=== PATIENT | female | born 1975 | race Two or more races ===

== ENCOUNTER 2016-11-22 19:30 | Emergency (ER) | payer OTHER ==
--- NOTE | 2016-11-22 19:34 | PDOC ---
History of Present Illness - General History Source: Patient Exam Limitations: No Limitations - History of Present Illness Initial Comments: 11/22/16 19:56 The patient is a 41 year old female, who presents to the emergency department with left sided abdominal pain and urgency onset today and pain on urination since yesterday. She describes her abdominal pain as ranging from mild to moderate, with radiation to her right flank. She denies any modifying factors. She notes that the pain on urination began yesterday and describes it as a pressure like sensation. She states that her history of kidney stones was on the right kidney. The patient denies chest pain, shortness of breath, headache and dizziness. Denies fever, chills, nausea, vomit, diarrhea and constipation. Denies frequency , and hematuria. PAST MEDICAL HISTORY: Kidney stones PAST SURGICAL HISTORY: Gastric sleeve (09/2016) FAMILY HISTORY: no pertinent history SOCIAL HISTORY: Pt lives with family and is employed. MEDICATIONS: reviewed ALLERGIES: As per nursing notes <Gabriel Puga - Last Filed: 11/22/16 19:55> - General History Source: Patient Exam Limitations: No Limitations - History of Present Illness Initial Comments: 11/22/16 21:38 A portion of this note was documented by scribe services under my direction. I have reviewed the details of the note, within reason, and agree with the documentation. The case summary and management plan written by me. 11/22/16 22:33 CT scan shows a 4 mm stone in the distal left ureter at the level of the acetabulum the ureter is poorly visualized but no hydronephrosis. There is also multiple tiny 1-2 mm nonobstructing bilateral intrarenal stones. Assessment and plan: This is a 41-year-old female who comes in complaining of left flank pain. Patient does have a stone in the left distal ureter. Patient did not want any pain medication here in the emergency room however prescription was sent to her pharmacy for pain medication as well as nausea medication and Flomax. Patient does have a urologist she can follow-up with next week. <Nicolasa Shen I - Last Filed: 11/22/16 22:40> - General Chief Complaint: Urinary Problem Stated Complaint: FLANK PAIN, DIFF. URINATING Time Seen by Provider: 11/22/16 19:34 Past History <Gabriel Puga Last Filed: 11/22/16 19:55> - Psycho/Social/Smoking Cessation Hx Anxiety: No Suicidal Ideation: No Smoking History: Unknown if ever smoked Have you smoked in the past 12 months: No Number of Cigarettes Smoked Daily: 0 Hx Alcohol Use: No Drug/Substance Use Hx: No Substance Use Type: None <AguedanayelyNicolasa I - Last Filed: 11/22/16 22:40> - Past Medical History Allergies/Adverse Reactions: Allergies Allergy/AdvReac Type Severity Reaction Status Date / Time No Known Allergies Allergy Unverified 08/13/16 23:30 Home Medications: Ambulatory Orders Multivitamins [Tab-A-Vit -] 1 tab PO DAILY 11/22/16 Ondansetron [Zofran Odt -] 4 mg SL BID #14 od.tablet 11/22/16 Oxycodone HCl/Acetaminophen [Percocet 5-325 mg Tablet] 1 tab PO Q4H #20 tablet MDD 8 11/22/16 Tamsulosin HCl [Flomax] 0.4 mg PO DAILY #30 capsule 11/22/16 Review of Systems - Review of Systems Able to Perform ROS?: Yes Comments:: 11/22/16 19:55 General: No fevers or chills, no weakness, no weight loss HEENT: No change in vision. No sore throat,. No ear pain CardioVascular: No chest pain or shortness of breath Respiratory:No cough, or wheezing. Gastrointestinal: +Left sided abdominal pain. no nausea, vomiting, diarrhea or constipation, No rectal bleeding Genitourinary: +Left flank pain, urgency and pain on urination. No hematuria, or frequency Musculoskeletal: No joint or muscle pain or swelling Neurologic: No headache, vertigo, dizziness or loss of consciousness Psychiatric: nor depression Skin: No rashes or easy bruising Endocrine: no increased thirst or abnormal weight change Allergic: no skin or latex allergy All other systems reviewed and normal <Gabriel Puga - Last Filed: 11/22/16 19:55> *Physical Exam - Vital Signs Last Vital Signs Temp Pulse Resp BP Pulse Ox 98.6 F 73 16 106/48 100 11/22/16 19:30 11/22/16 19:30 11/22/16 19:30 11/22/16 19:30 11/22/16 19:30 - Physical Exam Comments: 11/22/16 19:55 General: Well-nourished well-developed individual, no acute distress HEENT: Throat: Normal, tonsils normal, no erythema or exudate Neck: Supple, no meningeal signs, no lymphadenopathy Eyes::Pupils equal reactive and round, extraocular motion intact Chest: Nontender to palpation Cardiac: S1-S2 normal, regular rate and rhythm, no murmurs rubs or gallops Respiratory: Lungs clear to auscultation bilateral Abdomen: Soft, nondistended, normal bowel sounds, nontender to palpation diffusely : +Tenderness on palpation of the left CVA region and flank. Extremities: Warm, dry, no cyanosis, clubbing, or edema Skin: No rashes Neuro: Alert and oriented x3, nonfocal exam, grossly intact, normal gait Psych: Normal mood and affect <Gabriel Puga - Last Filed: 11/22/16 19:55> ED Treatment Course - ADDITIONAL ORDERS Additional order review: Laboratory Results 11/22/16 11/22/16 19:38 19:38 Urine Color Josette Urine Appearance Cloudy Urine pH 5.5 Ur Specific [place] >= 1.030 H Urine Protein 2+ H Urine Glucose (UA) Negative Urine Ketones 4+ H Urine Blood 3+ H Urine Nitrite Negative Urine Bilirubin 2+ H Urine Urobilinogen 1.0 e.u/dl Ur Leukocyte Esterase Negative Urine RBC 60-100 Urine WBC 2-4 Ur Epithelial Cells Moderate Amorphous Urates Few Urine Bacteria Few Urine HCG, Qual Negative <Gabriel Puga - Last Filed: 11/22/16 19:55> - LABORATORY CBC & Chemistry Diagram: 11/22/16 20:01 11/22/16 20:01 <Nicolasa Shen I - Last Filed: 11/22/16 22:40> *DC/Admit/Observation/Transfer - Attestations Scribe Attestion: 11/22/16 19:55 Documentation prepared by Gabriel Puga, acting as medical instructor for Nicolasa Shen MD <Gabriel Puga - Last Filed: 11/22/16 19:55> - Discharge Dispostion Admit: No <Nicolasa Shen I - Last Filed: 11/22/16 22:40> Diagnosis at time of Disposition: Renal colic on left side - Discharge Dispostion Disposition: HOME Condition at time of disposition: Stable - Prescriptions Prescriptions: Tamsulosin HCl [Flomax] 0.4 mg PO DAILY #30 capsule Oxycodone HCl/Acetaminophen [Percocet 5-325 mg Tablet] 1 tab PO Q4H #20 tablet MDD 8 Ondansetron [Zofran Odt -] 4 mg SL BID #14 od.tablet - Referrals Referrals: Gely Andres [Primary Care Provider] - - Patient Instructions Additional Instructions: For the pain take ibuprofen 3 tablets 3 times a day with food don't take on an empty stomach If he needs something stronger for the pain you can take Percocet one tablet as often as every 4-6 hours if needed the Percocet will make you drowsy so do not try to drive or do anything that requires concentration while taking the Percocet. If you develop any nausea U can take Zofran 1 tablet as often as every 6-8 hours Take Flomax that will help keep the urine flowing and help pass the kidney Stone Follow-up with your urologist next week Return to the emergency department immediately with ANY new, persistent or worsening symptoms. Continue any medications as previously prescribed by your physician. You should follow up with your primary doctor as soon as possible regarding today's emergency department visit. . Please make sure your doctor reviews the results of your emergency evaluation. Thank you for coming to the Emergency Department today for your care. It was a pleasure to see you today. Please note that your evaluation is INCOMPLETE until you follow-up with your doctor.
[2016-11-22 19:44] LABS: PH,URINE 5.5 (4.5-8); URINE APPEARANCE Cloudy; URINE BILIRUBIN 2+ (NEGATIVE); URINE GLUCOSE (UA) Negative (NEGATIVE); URINE KETONE 4+ (NEGATIVE); URINE LEUK ESTERASE Negative (NEGATIVE); URINE NITRITE Negative (NEGATIVE); URINE UROBILINOGEN 1.0 E.U/dl (0.2-1.0)
[2016-11-22 19:45] LABS: URINE BLOOD 3+ (NEGATIVE); URINE COLOR AMBER; URINE PROTEIN 2+ (NEGATIVE)
[2016-11-22] MEDS ORDERED: SODIUM CHLORIDE 1,000 ML IV ONE (19:48)
[2016-11-22 19:53] VITALS: BP 106/48; PULSE 73; TEMP 98.6; BMI 31.1
[2016-11-22 19:54] LABS: URINE BACTERIA FEW /hpf (NEGATIVE); URINE RBC 60-100 /hpf (0-3)
[2016-11-22 20:14] LABS: BASOPHIL 1.4 % (0-2.0); EOSINOPHIL 0.8 % (0-4.5); MCH 29.6 pg (25.7-33.7); MCHC 32.9 g/dl (32.0-36.0); MEAN CELL VOLUME 89.9 fl (80-96); MEAN PLT VOLUME 9.2 fl (7.5-11.1); NEUTROPHILS 73.6 % (42.8-82.8); PLATELET COUNT 298 K/MM3 (134-434); RDW 13.4 % (11.6-15.6)
[2016-11-22 20:34] LABS: ALBUMIN 3.8 g/dl (3.5-5.0); ALK PHOS 76 U/L (32-92); ANION GAP 12 (8-16); BILIRUBIN,TOTAL 0.6 mg/dl (0.2-1.0); CALCIUM 9.4 mg/dl (8.4-10.2); CO2 24 mmol/L (22-28); COCKROFT - GAULT 114.9285; CREATININE 0.8 mg/dl (0.6-1.3); GLUCOSE,RANDOM 76 mg/dl (74-106); SGOT/AST 22 U/L (10-42); SGPT/ALT 20 U/L (10-40); TOT PROT 6.7 g/dl (6.4-8.3)
== END 2016-11-22 22:48 | disposition home or self-care (01) ==
LOC: FER 19:30
PROC: 3E0337Z Introduction of Electrolytic and Water Balance Substance into Peripheral Vein, Percutaneous Approach (ICD-10-PCS; principal; 2016-11-22)
DX: N23 Unspecified renal colic (principal); Z98.84 Bariatric surgery status
CPT/HCPCS: 36415; 74176-TC; 80053; 81003; 81015; 84703; 85025; 99283-25

== ENCOUNTER 2022-01-07 21:50 | Emergency (ER) | payer OTHER ==
[2022-01-07] MEDS ORDERED: KETOROLAC TROMETHAMINE 30 MG/1 ML VIAL IVPUSH ONE (21:57)
[2022-01-07] MEDS ORDERED: KETOROLAC TROMETHAMINE 30 MG/1 ML VIAL ONE (21:57)
[2022-01-07] MEDS ORDERED: ONDANSETRON 4 MG/2 ML VIAL IVPUSH ONE (21:57)
[2022-01-07] MEDS ORDERED: SODIUM CHLORIDE 1,000 ML IV STA (21:57)
[2022-01-07] MEDS ORDERED: ONDANSETRON 4 MG/2 ML VIAL ONE (21:57)
[2022-01-07 22:12] VITALS: BP 117/66; PULSE 69; TEMP 98.1; BMI 27.4
[2022-01-07 22:12] LABS: HCG,QUALITATIVE URINE Negative
[2022-01-07 22:14] LABS: HEMATOCRIT 38.3 % (32.4-45.2); MCHC 33.9 g/dl (32.0-36.0); MEAN CELL VOLUME 88.5 fl (80-96); MEAN PLT VOLUME 8.1 fl (7.5-11.1); PLATELET COUNT 408.3 10^3/uL (134-434); RBC 4.33 10^6/uL (3.60-5.2); RDW 15.4 % (11.6-15.6); WHITE BLOOD COUNT 9.3 10^3/uL (4.0-10.8)
[2022-01-07 22:20] LABS: PLATELET ESTIMATE SLT INCREASE
[2022-01-07 22:25] LABS: ALBUMIN 4.1 g/dl (3.4-5.0); BILIRUBIN,TOTAL 0.4 mg/dl (0.2-1); CALCIUM 9.7 mg/dl (8.5-10); CREATININE 0.9 mg/dl (0.55-1.3); TOT PROT 7.3 g/dl (6.4-8.2)
== END 2022-01-08 00:53 | disposition home or self-care (01) ==
LOC: FER 21:50
PROC: 3E0333Z Introduction of Anti-inflammatory into Peripheral Vein, Percutaneous Approach (ICD-10-PCS; principal; 2022-01-07)
PROC: 3E033GC Introduction of Other Therapeutic Substance into Peripheral Vein, Percutaneous Approach (ICD-10-PCS; 2022-01-07)
PROC: 3E0337Z Introduction of Electrolytic and Water Balance Substance into Peripheral Vein, Percutaneous Approach (ICD-10-PCS; 2022-01-07)
DX: R10.9 Unspecified abdominal pain (principal)
CPT/HCPCS: 36415; 74176-TC; 80053; 81003; 84703; 85025; 99284-25